=== PATIENT | female | born 1995 | race African-American/Black ===

== ENCOUNTER 2017-09-13 01:13 | Emergency (ER) | payer BC, OTHER ==
[~2017-09-13] VITALS: Ht 175.3 cm; Wt 65.2 kg
[2017-09-13 01:19] VITALS: BP 142/90; PULSE 96; TEMP 36.8; O2SAT 96; Ht 175.3 cm; Wt 65.2 kg
[2017-09-13] MEDS ORDERED: MONT1TAB3 PO (02:17)
[2017-09-13] MEDS ORDERED: VNTHFA/IN INH (02:18)
--- NOTE | 2017-09-13 05:30 | EMERGENCY ROOM VISIT NOTE ---
History Report prepared by Sharif: Rachel Lal Under the Supervision of: Dr. Emily Estrada D.O. First contact with patient: :23 Chief Complaint: FACIAL PAIN/INJURY Stated Complaint: SWELLING ON MOUTH History of Present Illness The patient is a 22 year old female who presents to the Emergency Room with complaints of an episode of facial pain starting yesterday morning. The patient states that she noticed bumps on her lips when she woke up yesterday morning. The patient complains of the bumps being uncomfortable. The patient denies being around kids a lot, ear aches, fevers, nasal drainage, cough, lesions in her genital area, and lesions in her mouth. Source of History: patient Onset: yesterday morning Position: other (face) Quality: other (uncomfortable) Timing: other (episode) Associated Symptoms: No fevers, No cough Note: The patient denies being around kids a lot, ear aches, nasal drainage, lesions in her genital area, and lesions in her mouth. Review of Systems See HPI for pertinent positives & negatives. A total of 10 systems reviewed and were otherwise negative. Past Medical & Surgical Asthma Family History Diabetes mellitus Social History Smoking Status: Never Smoker Marital Status: in relationship Housing Status: lives with significant other Occupation Status: [employer] student Current/Historical Medications Scheduled Montelukast Sodium (Singulair), 10 MG PO DAILY Scheduled PRN Albuterol Hfa (Ventolin Hfa), 2 PUFFS INH Q6H PRN for SOB/Wheezing Allergies Coded Allergies: NUTS (Verified Allergy, Unknown, swelling, 09/13/17) Physical Exam Vital Signs Date Time Temp Pulse Resp B/P (MAP) Pulse Ox O2 Delivery O2 Flow Rate FiO2 09/13/17 01:19 36.8 96 18 142/90 96 Room Air Physical Exam HEENT: Head - normocephalic and atraumatic Pupils are equal, round, and reactive to light. Extraocular eye muscles are intact, and sclera are anicteric. Nose - moist nasal mucosa without discharge. Mouth - moist buccal mucosa. Area of vesicles on the left upper vermilion border Oropharynx is nonerythematous and there is no tonsillar exudate or edema noted. Neck: Supple; no JVD, nuchal rigidity, cervical lymphadenopathy. Heart: Regular rate and rhythm. There is a normal S1 and S2 with no murmurs, clicks, or gallops appreciated. Lungs: Clear to auscultation bilaterally with no wheezes, rales, or rhonchi. Skin: warm and dry with good turgor and no rashes. Medical Decision & Procedures ED Course 0153: Past medical records reviewed. The patient was evaluated in room B2. A complete history and physical exam was performed. I discussed findings and results with her. She verbalized agreement of the treatment plan. The patient was discharged home. Medical Decision The patient is a 22 year old female who presents to the Emergency Room with complaints of an episode of facial pain starting yesterday morning. Differential diagnoses include herpes simplex, shingles. This is a 22-year-old female patient who presents to the emergency department with 2 small vesicular lesions on the left upper lip specifically at the vermilion border. Her presentation seems consistent with herpes simplex/a cold sore. I encouraged the patient to use Abreva. She should follow-up with the [facility] if symptoms persist or worsen. Medication Reconcilliation Current Medication List: was personally reviewed by me Blood Pressure Screening Patient's blood pressure: Elevated blood pressure Blood pressure disposition: Elevated BP felt to be situational Impression Primary Impression: Cold sore Scribe Attestation The scribe's documentation has been prepared under my direction and personally reviewed by me in its entirety. I confirm that the note above accurately reflects all work, treatment, procedures, and medical decision making performed by me. Departure Information Dispostion Home / Self-Care Referrals No Doctor, Assigned (PCP) Forms HOME CARE DOCUMENTATION FORM, IMPORTANT VISIT INFORMATION Patient Instructions My [facility] Additional Instructions You may apply abreva to your lip as directed. Return to the ER if symptoms worsen
== END 2017-09-13 02:21 | disposition home or self-care (01) ==
LOC: C.EDB 01:14
DX: B00.1 Herpesviral vesicular dermatitis (principal); J45.909 Unspecified asthma, uncomplicated; Z91.018 Allergy to other foods; Z83.3 Family history of diabetes mellitus

== ENCOUNTER 2017-09-24 12:36 | Emergency (ER) | payer OTHER ==
[~2017-09-24] VITALS: Ht 175.3 cm; Wt 66.5 kg
[~2017-09-24 12:36] MED LIST: MONT1TAB3 PO; VNTHFA/IN INH
[2017-09-24 12:37] VITALS: TEMP 36.7; Ht 175.3 cm; Wt 66.5 kg
--- NOTE | 2017-09-24 13:06 | DIAGNOSTIC IMAGING REPORT ---
L ANKLE MIN 3 VIEWS ROUTINE CLINICAL HISTORY: left ankle pain post fall trauma. Pain. COMPARISON: None. DISCUSSION: The bones and joint spaces appear intact. There is no evidence of fracture, dislocation or bony disease. There is no evidence for soft tissue swelling. IMPRESSION: Negative study. The above report was generated using voice recognition software. It may contain grammatical, syntax or spelling errors. Electronically signed by: Guy Galvez M.D. 09/24/2017 1:04 PM Dictated Date/Time: 09/24/2017 1:04 PM
[2017-09-24 13:52] VITALS: BP 122/68; PULSE 60; O2SAT 98
--- NOTE | 2017-09-24 14:13 | EMERGENCY ROOM VISIT NOTE ---
History First contact with patient: 12:45 Chief Complaint: ANKLE PAIN Stated Complaint: ANKLE PAIN History of Present Illness The patient is a 22 year old female who presents to the Emergency Room with complaints of left ankle pain. The patient reports that she missed a step last night while going down steps and twisted her ankle. She reports persistent pain with swelling, rating her discomfort a 7 out of 10 with weightbearing. She denies any pain extending into the foot or leg. She denies any paresthesias or numbness of the left foot or toes. The patient denies any prior history of left ankle injuries. 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 (3) Idiopathic Scoliosis (4) Unspecified Asthma, Uncomplicated (5) Vitamin D Deficiency Nos Surgical Problems: (1) No history of previous surgery Family History Diabetes mellitus Social History Smoking Status: Never Smoker Alcohol Use: none Marital Status: in relationship Housing Status: lives with significant other Occupation Status: [email or web address] student Current/Historical Medications Scheduled Montelukast Sodium (Singulair), 10 MG PO DAILY Scheduled PRN Albuterol Hfa (Ventolin Hfa), 2 PUFFS INH Q6H PRN for SOB/Wheezing Physical Exam Vital Signs Date Time Temp Pulse Resp B/P (MAP) Pulse Ox O2 Delivery O2 Flow Rate FiO2 09/24/17 13:52 60 18 122/68 98 09/24/17 12:37 36.7 80 20 125/65 100 Room Air Physical Exam CONSTITUTIONAL: Healthy and well nourished. Alert and oriented X 3 with positive affect. Patient does not appear in any acute distress. HEENT: Normocephalic, atraumatic. Pupils equal, round and reactive. NECK: Full active range of motion without discomfort. MUSCULOSKELETAL: Examination of the left ankle shows diffuse edema without ecchymosis or puncture wounds. She is generally tender over the entire ankle. Negative anterior drawer. No focal tenderness over the Achilles tendon, calcaneus, midfoot, metatarsals or phalanges. No worsening pain with subtalar motion. Pedal pulses are intact. INTEGUMENTARY: No rash or other significant dermatologic conditions noted. NEUROLOGIC: Left foot and toes are sensory intact. Medical Decision & Procedures ER Provider Diagnostic Interpretation: My interpretation of left ankle x-rays does not show any acute fractures, dislocation or ankle mortise asymmetry. Radiologist report is as follows: L ANKLE MIN 3 VIEWS ROUTINE CLINICAL HISTORY: left ankle pain post fall trauma. Pain. COMPARISON: None. DISCUSSION: The bones and joint spaces appear intact. There is no evidence of fracture, dislocation or bony disease. There is no evidence for soft tissue swelling. IMPRESSION: Negative study. ED Course Patient history and physical exam were performed. Nurse's notes were reviewed. Vital signs were reviewed and were normal. The patient refused any analgesics. X-rays of the left ankle were normal. The patient was advised that her history and physical exam findings are most consistent with an ankle sprain. The patient was fitted with crutches and an ankle gel splint. She was encouraged to perform range of motion exercises over the next several days, using crutches to avoid limping. Ice and elevation for swelling. Ibuprofen and Tylenol as needed for additional pain relief. Follow up with orthopedics if symptoms are not improving within the next week. The patient was happy with plan of care, voiced understanding of all discharge instructions, and rated her discomfort a 4 out of 10 at the conclusion of my exam. Medical Decision Medication Reconcilliation Current Medication List: was personally reviewed by me Blood Pressure Screening Patient's blood pressure: Normal blood pressure Impression Primary Impression: Left ankle sprain Departure Information Dispostion Home / Self-Care Referrals No Doctor, Assigned James Moyer, D.O. Forms HOME CARE DOCUMENTATION FORM, IMPORTANT VISIT INFORMATION Patient Instructions My [facility] pic5 Additional Instructions Intermittently apply ice and elevate the ankle for swelling and pain. Perform range of motion exercises of the ankle to prevent stiffness. No weight on foot for the next 3 days -. Use crutches. After 3 days, apply ankle brace and, continuing to use crutches, slowly apply weight as tolerated - NO LIMPING. Ibuprofen and/or Tylenol as needed for additional pain relief. If the ankle is not improving within the next week, follow-up with [facility] (Dr. Moyer) for further reevaluation and management.
== END 2017-09-24 13:54 | disposition home or self-care (01) ==
LOC: EDBD 12:36 → C.EDD 12:36
DX: S93.402A Sprain of unspecified ligament of left ankle, initial encounter (principal); W19.XXXA Unspecified fall, initial encounter; D64.9 Anemia, unspecified; M41.20 Other idiopathic scoliosis, site unspecified; J45.909 Unspecified asthma, uncomplicated; Z83.3 Family history of diabetes mellitus